=== PATIENT | female | born 1985 | race Caucasian/White ===

== ENCOUNTER 2016-12-25 00:50 | Inpatient (IN) | payer BC ==
[2016-12-25] MEDS ORDERED: ONDANSETRON HCL/PF 2 MG/ML VIAL IV PRN (02:47)
[2016-12-25] MEDS ORDERED: NALOXONE HCL 1 MG/1 ML SYRG IV PRN (02:47)
[2016-12-25] MEDS ORDERED: LIDOCAINE HCL 50 ML VIAL PERI PRN (02:47)
[2016-12-25] MEDS ORDERED: BUPIVACAINE HCL/0.9 % NACL/PF 250 ML EP PRN (02:47)
[2016-12-25] MEDS ORDERED: RINGER'S SOLUTION,LACTATED 1,000 ML IV ONE (02:50)
[2016-12-25] MEDS ORDERED: OXYTOCIN/DEXTROSE 5%-WATER 30 UNITS/500 ML BAG IV ONE ×3 (02:52→10:24)
[2016-12-25] MEDS ORDERED: BUPIVACAINE HCL/PF 30 ML VIAL EP SCH (03:00)
[2016-12-25] MEDS: DEXTROSE 5%-LACTATED RINGERS 1,000 ML IV PRN ×2 (03:36→07:40)
--- NOTE | 2016-12-25 04:06 | OR ---
Anesthesia Procedure Note - Anesthesia Procedure Note Date of Service: 12/25/16 Narrative: Vital Signs - Last Taken Temp 36.3 C L 04/24/16 09:48 Pulse 82 12/25/16 04:03 Resp 18 12/25/16 04:03 BP 139/82 12/25/16 04:03 Pulse Ox 98 12/25/16 04:03 12/25/16 04:05 ANESTHESIA PROCEDURE NOTE Date of Procedure: 12/25/2016. Time of procedure: 0350. Performed by: Dyllan Meier CRNA Principal Database Developer: None. Preprocedure diagnosis: Active labor. Post procedure diagnosis: Same. Procedure: Insertion of labor epidural. Indications: The patient is a 31 -year-old female in active labor requesting labor epidural for pain management. Findings: See below. Details of the procedure: The patient was placed in a sitting position. DuraPrep as well as Betadine swabs X3 was applied to the patient's back. Patient was then draped in a sterile fashion. Lidocaine 1% was infiltrated to the skin and subcutaneous tissues at the level of the L3-4 interspace. The epidural space was identified using a 18-gauge Tuohy needle with loss-of- resistance technique. Epidural catheter was inserted to a depth of 10 centimeters at skin. Negative test dose was elicited using 3 mL of 1.5% preservative-free lidocaine plus epinephrine 1 200,000. The epidural catheter was then taped and secured in place. A loading dose of 8 mL of 0.25% preservative-free bupivacaine was administered to the epidural catheter after negative aspiration for blood and CSF. EBL: Minimal. Fluids: N/A. Specimen: N/A. Post procedure condition: The patient tolerated the procedure well. No complications were noted. Thank you for this consultation. Dyllan Meier CRNA
[2016-12-25] MEDS ORDERED: BISACODYL 10 MG SUPP.RECT RC PRN (10:24)
[2016-12-25] MEDS ORDERED: HYDROCORTISONE 30 APPL TUBE TP PRN (10:24)
[2016-12-25] MEDS ORDERED: GLYCERIN/WITCH HAZEL LEAF 40 APPL BOX TP PRN (10:24)
[2016-12-25] MEDS ORDERED: BENZOCAINE/MENTHOL 81 SPRAY CAN TP PRN (10:24)
[2016-12-25] MEDS ORDERED: SENNOSIDES 8.6 MG TABLET PO PRN (10:24)
[2016-12-25] MEDS ORDERED: oxyCODONE HCL/ACETAMINOPHEN 1 TAB TABLET PO PRN ×2 (10:24)
--- NOTE | 2016-12-25 10:27 | OR ---
Operative Report - Dictated Report Narrative: Spontaneous vaginal delivery of viable female at 0951 on 12/25/2016 with Apgars 9 and 9, weighing 3667 g and KWASI position Cord clamping delayed approximately 1 minute Placenta delivered complete, intact, with three vessel cord Estimated blood loss: less than 50 ml Lacerations: None Mother: , infant: 40 5/7 weeks History for MU Definition: * The number of deliveries resulting in a live the patient experienced prior to current hospitalization * The previous delivery of live twins or any live multiple gestation is considered one live event. *If primagravida or nulliparous is documented select zero for the number of previous live births. Live Events: 1
[2016-12-25] MEDS: IBUPROFEN 800 MG TABLET PO PRN ×2 (12:26→23:36)
[2016-12-25] MEDS: DOCUSATE SODIUM 100 MG CAPSULE PO SCH (20:07)
[2016-12-26 09:28] VITALS: BP 116/74
[2016-12-26] MEDS: DOCUSATE SODIUM 100 MG CAPSULE PO SCH (11:54)
[2016-12-26] MEDS: IBUPROFEN 800 MG TABLET PO PRN (11:54)
--- NOTE | 2016-12-26 13:26 | PN ---
Subjective - Date and Time Seen Date: 12/26/16 Time: 13:26 Objective - Vitals Vitals: Last Vital Signs Temp 36.2 C L 12/26/16 07:00 Pulse 76 12/26/16 07:00 Resp 18 12/26/16 07:00 BP 116/74 12/26/16 07:00 Pulse Ox 98 12/26/16 07:00 Patient denies complaints. She desires early discharge Lochia wnl Abdomen - soft, nontender Uterus - firm, at umbilicus - 1 No calf tenderness Impression: day #1 - s/p spontaneous vaginal delivery. Plan: Continue routine care. Routine discharge instructions given. Cauti Physician Documentation - Urinary Catheter Management Urethral ([place]) Date of Removal: 12/25/16 Time of Removal: 09:40
== END 2016-12-26 14:40 | disposition home or self-care (01) | DRG 775 ==
LOC: OBCLINIC 00:50 → OB 02:23
PROVIDERS: ADMIT Obstetrics & Gynecology; ATTEND Obstetrics & Gynecology
PROC: 10E0XZZ Delivery of Products of Conception, External Approach (ICD-10-PCS; principal; 2016-12-25)
PROC: 4A1HXCZ Monitoring of Products of Conception, Cardiac Rate, External Approach (ICD-10-PCS; 2016-12-25)
PROC: 00HU33Z Insertion of Infusion Device into Spinal Canal, Percutaneous Approach (ICD-10-PCS; 2016-12-25)
DX: O80 Encounter for full-term uncomplicated delivery (principal); Z3A.41 41 weeks gestation of pregnancy; Z37.0 Single live birth

== ENCOUNTER 2018-07-22 | Inpatient (IN) ==
[2018-07-22] MEDS ORDERED: MISOPROSTOL 100 MCG TABLET VG PRN (00:27)
[2018-07-22] MEDS ORDERED: OXYTOCIN/DEXTROSE 5%-WATER 30 UNITS/500 ML BAG IV ONE ×2 (00:27→18:30)
[2018-07-22] MEDS ORDERED: RINGER'S SOLUTION,LACTATED 1,000 ML IV ONE (00:27)
[2018-07-22] MEDS ORDERED: ONDANSETRON 4 MG TAB.RAPDIS PO PRN (00:27)
[2018-07-22] MEDS ORDERED: DEXTROSE 5%-LACTATED RINGERS 1,000 ML IV PRN (00:27)
[2018-07-22] MEDS ORDERED: BUPIVACAINE HCL/0.9 % NACL/PF 250 ML EP PRN (05:51)
[2018-07-22] MEDS ORDERED: NALOXONE HCL 1 MG/1 ML SYRG IV PRN (05:51)
[2018-07-22] MEDS ORDERED: ONDANSETRON HCL/PF 2 MG/ML VIAL IV PRN (05:51)
[2018-07-22] MEDS ORDERED: LIDOCAINE HCL/EPINEPHRINE 20 ML VIAL IJ ONE (05:55)
[2018-07-22] MEDS ORDERED: fentaNYL CITRATE/PF 50 MCG/ML AMPUL IT SCH (06:00)
--- NOTE | 2018-07-22 07:15 | ANES ---
Anesthesia Pre Procedure Eval Vitals/Labs: Last Vital Signs Temp 36.8 C 07/22/18 01:35 Pulse 88 07/22/18 01:35 Resp 18 07/22/18 01:35 BP 111/76 07/22/18 01:35 Pulse Ox 97 07/22/18 01:35 HOME MEDICATIONS Vits96/Iron Fum/Folic [ S] 1 tab PO DAILY 06/12/15 [Last Taken Unknown] calcium carbonate 200 mg calcium (500 mg) chewable tablet 200 mg PO DAILY tab 05/16/18 [Last Taken Unknown] Allergies/Adverse Reactions: Allergies Allergy/AdvReac Type Severity Reaction Status Date / Time No Known Allergies Allergy Verified 07/22/18 00:28 - Planned Procedure Planned Procedure: INDUCTION Medication List Reviewed:: Yes Allergies Verified: Yes Medical History (Last Reviewed 07/22/18 @ 07:14 by Wally Cifuentes CRNA) Rubella non-immune status, antepartum (Acute) Body piercing Headache Mosquito Allergy Severe Swelling Seizure Onset Date: Unknown In high school. When pt passes out (sight of blood, etc) pt has mini seizures (pt shakes.) Pt had a CAT scan in with negative findings. Pt states this has occurred approx. 4-5 times from HS to present. 10/25/14 Tattoos Anemia Onset Date: 03/18/15 w/ Left wrist sprain Onset Date: 01/13/11 Ovarian cyst Onset Date: ~01/2016 Right [place] teeth extracted Surgical History (Last Reviewed 07/22/18 @ 07:14 by Wally Cifuentes CRNA) History of adenoidectomy Onset Date: ~1997 History of tonsillectomy Onset Date: ~1997 Family History (Last Reviewed 07/22/18 @ 07:14 by Wally Cifuentes CRNA) Father CHF (congestive heart failure) Grandfather Cirrhosis of liver Grandfather Heart disease Grandmother Hypertension Diabetes Grandmother Alzheimers disease Sister Connective tissue disorder Erin-Danlos Syndrome Uncle Lung cancer Aunt Cystic fibrosis 7 aunts and uncles with CF that before the age of 1. Family/Other Down syndrome 2nd cousin - Family Anesthesia History Family History:: no untoward family reactions to anesthesia - Airway/Neck/Teeth Within Normal Limits:: Yes Teeth Condition: intact Neck Exam: full range of motion Mallampatti Score: 2 Thyromental (T-M) distance: > 6 cm Mandibulo Hyoid distance: > 3 cm - Respiratory Respiratory Physical: lungs clear Smoking Status: Never smoker Sleep Apnea currently treated: No Sleep Apnea by current assessment: No - Cardiovascular Tolerate Activity: Good Heart Sounds: S1 & S2, Regular - Anesthesia Assessment and Plan ASA Class: PS, II, E Anesthesia Type Plan: Epidural Planned difficult intubation/equipment available: No
--- NOTE | 2018-07-22 07:15 | ANES ---
Post Anesthesia Discharge - Transfer of Care Transfer of Care handoff given to nurse: Yes - Anesthesia Post Op Note Anesthesia Post Op Note: Care transferred to OB RN
--- NOTE | 2018-07-22 07:16 | ANES ---
Post Anesthesia Assessment - Vital Signs Vitals: Last Vital Signs Temp 36.8 C 07/22/18 01:35 Pulse 88 07/22/18 01:35 Resp 18 07/22/18 01:35 BP 111/76 07/22/18 01:35 Pulse Ox 97 07/22/18 01:35 Airway Patency: Normal - Mental Status Level Of Consciousness: Awake - Pain Level Pain Score: 2 - N/V Assessment Nausea/Vomiting Presence: None Dehydration:: No
--- NOTE | 2018-07-22 07:19 | ANES ---
Anesthesia Procedure Note Procedure Note: ANESTHESIA PROCEDURE NOTE Date of Procedure: 07/22/2018 Time of procedure: . Performed by: Ector Cifuentes CRNA Professor Of Criminal Justice: None. Preprocedure diagnosis: Active labor. Post procedure diagnosis: Same. Procedure: Insertion of labor epidural. Indications: The patient is a 33-year-old multigravida female in active labor requesting labor epidural for pain management. Findings: See below. Details of the procedure: The patient was placed in a sitting position. Back was prepped with DuraPrep. Patient was then draped in a sterile fashion. Lidocaine 1% was infiltrated to the skin and subcutaneous tissues at the level of the L3 4 interspace. The epidural space was identified using a 18-gauge Tuohy needle with [id number] technique. Epidural catheter was inserted without difficulty. Negative test dose was elicited using 3 mL of 2% preservative-free lidocaine plus epinephrine 1 200,000. The epidural catheter was then taped and secured in place. EBL: Minimal. Fluids: N/A. Specimen: N/A. Post procedure condition: The patient tolerated the procedure well. No complications were noted. Thank you for this consultation. Linder CRNA
--- NOTE | 2018-07-22 13:27 | HP ---
Chief Complaint - Chief Complaint Date of Service: 07/22/18 Time of Service: 13:26 Chief Complaint: induction of labor History of Present Illness: 33 yo at 40 5/7 wks here for induction of labor due to post dates. This uncomplicated. Rh positive Rubella non-immune GBS negative Medical History (Last Reviewed 07/22/18 @ 13:37 by Toi Thomas DO) Rubella non-immune status, antepartum (Acute) Body piercing Headache Mosquito Allergy Severe Swelling Seizure Onset Date: Unknown In high school. When pt passes out (sight of blood, etc) pt has mini seizures (pt shakes.) Pt had a CAT scan in with negative findings. Pt states this has occurred approx. 4-5 times from to present. 10/25/14 Tattoos Anemia Onset Date: 03/18/15 w/ Left wrist sprain Onset Date: 01/13/11 Ovarian cyst Onset Date: ~01/2016 Right [place] teeth extracted Surgical History: Surgical History (Last Reviewed 07/22/18 @ 13:37 by Toi Thomas DO) History of adenoidectomy Onset Date: ~1997 History of tonsillectomy Onset Date: ~1997 Family History: Family History (Last Reviewed 07/22/18 @ 13:37 by Toi Thomas DO) Father CHF (congestive heart failure) Grandfather Cirrhosis of liver Grandfather Heart disease Grandmother Hypertension Diabetes Grandmother Alzheimers disease Sister Connective tissue disorder Erin-Danlos Syndrome Uncle Lung cancer Aunt Cystic fibrosis 7 aunts and uncles with CF that before the age of 1. Family/Other Down syndrome 2nd cousin Social History: Preferred Language Japanese Smoking Status Never smoker Abuse History No History of abuse Psych History No pertinent hx (Last Updated 07/18/18 @ 10:04 by Toi Thomas DO) No Social History Section defined Review Of Systems (GEN) - Review of Systems Generalized/Overall Review: Present: No Symptoms Reported EENTM: Present: No Symptoms Reported Respiratory: Present: No Symptoms Reported Cardiac: Present: No Symptoms Reported Abdominal: Present: No Symptoms Reported Genitourinary: Present: No Symptoms Reported Musculoskeletal: Present: No Symptoms Reported Neurological: Present: No Symptoms Reported Skin: Present: No Symptoms Reported Endocrine: Present: No Symptoms Reported Immunizations: IMMUNIZATION HX Immunizations Up to Date Yes History of Influenza Vaccine No Hx Pneumococcal Vaccination No Allergies/Adverse Reactions: Allergies Allergy/AdvReac Type Severity Reaction Status Date / Time No Known Allergies Allergy Verified 07/22/18 00:28 Home Medications: HOME MEDICATIONS Vits96/Iron Fum/Folic [ S] 1 tab PO DAILY 06/12/15 [Last Taken Unknown] calcium carbonate 200 mg calcium (500 mg) chewable tablet 200 mg PO DAILY tab 05/16/18 [Last Taken Unknown] Exam - Exam Vital Signs: Vital Signs - Last Taken Temp 36.8 C 07/22/18 01:35 Pulse 88 07/22/18 01:35 Resp 18 07/22/18 01:35 BP 111/76 07/22/18 01:35 Pulse Ox 97 07/22/18 01:35 Constitutional: Present: Alert, Oriented x3, Cooperative, No distress ENT Exam: Present: hearing grossly normal Breasts: Present: Exam deferred Respiratory: Present: lungs clear, no respiratory distress Cardiovascular/Chest: Present: normal peripheral pulses, regular rate, rhythm, no edema Abdomen: Present: soft, nontender, no rebound tenderness, other - gravid /Rectal: Present: Other - 1-2/50/-2 Extremity: Present: no pedal edema, no calf tenderness Skin Exam: Present: normal color, warm/dry, no cyanosis Neurologic: Present: normal mood/affect, oriented x 3 Appearance: Present: appropriate appearance, appropriate insight Eye contact: Present: cooperative, good eye contact Thoughts: Present: normal thought pattern Diagnostic Studies: NST reactive Assessment/Plan - Assessment/Plan (1) Encounter for induction of labor Assessment: Admit for cytotec induction of labor. Epidural PRN. Problem: Acute (2) Post-dates Problem: Acute (3) Rubella non-immune status, antepartum Problem: Acute
--- NOTE | 2018-07-22 13:29 | PN ---
Progess Note - Interim Date: 07/22/18 Time: 13:27 - Seen at 1120 Narrative: 07/22/18 13:27 Patient coming more uncomfortable with contractions Vital signs stable. Received 1 dose of Cytotec around 1 AM this morning. FHT: At 40 baseline, reassuring Contractions q 2-4 min Cervix: 3-4/50/-2, AROM-clear Impression: Intrauterine at 40 5/7 weeks induction of labor for postdates Plan: Continue present plan
[2018-07-22] MEDS ORDERED: GLYCERIN/WITCH HAZEL LEAF 40 APPL BOX TP PRN (18:30)
[2018-07-22] MEDS ORDERED: BISACODYL 10 MG SUPP.RECT RC PRN (18:30)
[2018-07-22] MEDS ORDERED: SENNOSIDES 8.6 MG TABLET PO PRN (18:30)
[2018-07-22] MEDS ORDERED: BENZOCAINE/MENTHOL 81 SPRAY CAN TP PRN (18:30)
[2018-07-22] MEDS ORDERED: HYDROCORTISONE 30 APPL TUBE TP PRN (18:30)
[2018-07-22] MEDS ORDERED: oxyCODONE HCL/ACETAMINOPHEN 1 TAB TABLET PO PRN (18:30)
--- NOTE | 2018-07-22 18:37 | OR ---
Operative Report - Dictated Report Narrative: Spontaneous vaginal delivery of viable female at 1807 on 07/22/2018 with Apgars 8 and 9, weighing 4030 g with arm cord 1 and terminal meconium. Some bruising on her face due to baby being OP most of the day. Cord clamping delayed approximately 1 minute Placenta delivered complete, intact, with three vessel cord Estimated blood loss: less than 50 ml Anesthesia: epidural Lacerations: None History for MU Definition: * The number of deliveries resulting in a live the patient experienced prior to current hospitalization * The previous delivery of live twins or any live multiple gestation is considered one live event. *If primagravida or nulliparous is documented select zero for the number of previous live births. Live Events: 2
[2018-07-22] MEDS: IBUPROFEN 800 MG TABLET PO PRN (19:23)
[2018-07-22] MEDS: oxyCODONE HCL/ACETAMINOPHEN 1 TAB TABLET PO PRN (19:23)
[2018-07-23] MEDS: DOCUSATE SODIUM 100 MG CAPSULE PO SCH ×4 (00:16→22:10)
[2018-07-23] MEDS: oxyCODONE HCL/ACETAMINOPHEN 1 TAB TABLET PO PRN (03:41)
[2018-07-23] MEDS: IBUPROFEN 800 MG TABLET PO PRN ×3 (03:42→17:55)
[2018-07-23] MEDS: PRENATAL VITS96/IRON FUM/FOLIC 1 TAB TABLET PO SCH (11:31)
[2018-07-23] MEDS: CALCIUM CARBONATE 500 MG TAB.CHEW PO SCH (11:32)
--- NOTE | 2018-07-23 11:51 | PN ---
Subjective - Date and Time Seen Date: 07/23/18 Time: 11:51 Objective - Vitals Vitals: Last Vital Signs Temp 35.8 C L 07/23/18 07:17 Pulse 76 07/23/18 07:17 Resp 16 07/23/18 07:17 BP 111/84 07/23/18 07:17 Pulse Ox 98 07/23/18 07:17 Patient denies complaints. Lochia wnl Abdomen - soft, nontender Uterus - firm, at umbilicus - 1 No calf tenderness Impression: day #1 - s/p spontaneous vaginal delivery. Plan: Continue routine care Assessment/Plan - Problems/Diagnosis (1) Encounter for induction of labor Problem: Acute (2) Post-dates Problem: Acute (3) Rubella non-immune status, antepartum Problem: Acute
[2018-07-24] MEDS: IBUPROFEN 800 MG TABLET PO PRN (05:24)
[2018-07-24 08:15] VITALS: BP 105/57
--- NOTE | 2018-07-24 09:24 | PN ---
Subjective - Date and Time Seen Date: 07/24/18 Time: 09:22 Objective - Vitals Vitals: Last Vital Signs Temp 36.5 C 07/24/18 08:13 Pulse 72 07/24/18 08:13 Resp 14 07/24/18 08:13 BP 105/57 07/24/18 08:13 Pulse Ox 99 07/24/18 08:13 Patient denies complaints. Lochia wnl Abdomen - soft, nontender Uterus - firm, at umbilicus - 2 No calf tenderness Impression: day #2 - s/p spontaneous vaginal delivery. Plan: Routine discharge instructions Assessment/Plan - Problems/Diagnosis (1) Encounter for induction of labor Problem: Acute (2) Post-dates Problem: Acute (3) Rubella non-immune status, antepartum Problem: Acute
[2018-07-24] MEDS: DOCUSATE SODIUM 100 MG CAPSULE PO SCH (10:04)
[2018-07-24] MEDS: PRENATAL VITS96/IRON FUM/FOLIC 1 TAB TABLET PO SCH (10:04)
[2018-07-24] MEDS: CALCIUM CARBONATE 500 MG TAB.CHEW PO SCH (10:05)
== END 2018-07-24 11:50 | disposition home or self-care (01) | DRG 807 ==
LOC: OB 00:10
PROVIDERS: ADMIT Obstetrics & Gynecology; ATTEND Obstetrics & Gynecology
CPT/HCPCS: 59025